=== PATIENT | female | born 1965 | race Caucasian/White ===

== ENCOUNTER 2017-02-11 11:12 | Day surgery (SDC) | payer OTHER ==
[~2017-02-11] VITALS: Ht 160 cm; Wt 87.1 kg
[~2017-02-11 11:12] MED LIST: ALBU18HF; CHOL100062 PO; GLIP-95 PO; IBUP800T25 PO; LEVO137T7 PO; LISI10TA2 PO; LISINOPRIL; MULT1TAB59 PO; OMEPRAZOLE; PULMICORT
[2017-02-11 12:10] VITALS: Ht 160 cm; Wt 87.1 kg
[2017-02-11 12:25] VITALS: BP 122/70; PULSE 57; RESP 17
[2017-02-11] MEDS ORDERED: FENTAnyl 50 MCG/ML VIAL ONE (12:51)
[2017-02-11] MEDS ORDERED: LIDOCAINE 2% (SDV) 5 ML INJ ONE (12:51)
[2017-02-11] MEDS ORDERED: PROPOFOL 20 ML ONE (12:51)
[2017-02-11] MEDS ORDERED: ALBUTEROL HFA 8 GM INHALER ONE (12:51)
--- NOTE | 2017-02-11 14:19 | GILP ---
DATE OF PROCEDURE: NAME OF PROCEDURES: Esophagogastroduodenoscopy and biopsy. SURGEON: Melany Corley MD PREOPERATIVE DIAGNOSES: 1. Dysphagia. 2. Abdominal pain. POSTOPERATIVE DIAGNOSES: 1. Status post gastric sleeve surgery. 2. Nodules in the antrum as well as well as the proximal part of the stomach and biopsies were take n for histopathology. 3. Normal small bowel and biopsies were taken to rule out celiac disease. INDICATION FOR THE PROCEDURE: Ms. Nakia Ford is a 51-year-old female patient who had dysphagia. The patient also had a feeling of fullness after eating and she could not tolerate certain kinds of food. The patient was scheduled for endoscopic examination for further evaluation. The procedure and possible complications are well explained to the patient, she understood and conse nted to the procedure. DESCRIPTION OF PROCEDURE: Under the influence of anesthesia, the gastroscope was carefully introduc ed into the esophagus and under direct vision, it was advanced to the stomach and through the pyloru s into the duodenal bulb and descending duodenum. FINDINGS: ESOPHAGUS: The esophageal mucosa was normal. STOMACH: The patient was status post gastric sleeve surgery. The patient also had nodules on the g astric antrum as well as the proximal part of the stomach. Multiple biopsies were taken for histopa thology. The small bowel was normal. Small bowel biopsies were taken to rule out celiac disease. The patient tolerated the procedure very well and there was no complication from the procedure. At the end of the procedure, she was awake with stable vital signs and she was discharged home to the are of her family. IMPRESSION: 1. Status post gastric sleeve surgery. 2. Small bowel biopsies were taken to rule out celiac disease. 3. Gastric nodules on the antrum and proximal part of the stomach and biopsies were taken for histo pathology. PLAN: 1. Continue omeprazole. 2. Await histopathology reports. Dictated By: MELANY US/WILVER Conf#: [id number] DID#: [id number]
--- NOTE | 2017-02-11 21:08 | CONS ---
DATE OF ADMISSION: 02/11/2017 DATE OF CONSULTATION: TYPE OF CONSULTATION: Preoperative gastroenterology. Dear Dr. Ma, I thank you very much for this kind referral. HISTORY OF PRESENT ILLNESS: Ms. Nakia Ford is a 51-year-old female patient who has been referred to me for further evaluation of dysphagia. The patient also feels full after eating and she is not able to tolerate certain kind of food. The patient has history of gastritis and gastroesophageal r eflux disease. She is status post gastric sleeve surgery. There is no history of esophageal strict ure. There is no history of gallstones. She does not have any fever, chills, or jaundice. She magaña s not have any liver disease. The patient underwent colonoscopy 1 year ago, and she had a small col on polyp removed. No malignancy was detected. She is hypertensive. She has diabetes. There is no history of heart disease. She has history of bronchial asthma. There is no history of kidney dise ase. She has hypothyroidism. She is status post appendectomy and tummy tuck surgery. SOCIAL HISTORY: She is a nonsmoker. She does not abuse alcohol. FAMILY HISTORY: Negative for gastrointestinal tract neoplasm. ALLERGIES: SHE STATES SHE IS ALLERGIC TO VICODIN. MEDICATIONS: 1. She takes medicines for high blood pressure. 2. Diabetes. 3. Levothyroxine. 4. Omeprazole. 5. Zantac. 6. Morphine. PHYSICAL EXAMINATION: VITAL SIGNS: She is 5 feet 3 inches tall and weighs 180 pounds. HEART: Examination of the heart reveals normal first and second heart sounds. LUNGS: Clear. ABDOMEN: Soft without any distention. Liver and spleen are not palpable. There are no masses. Th ere is no focal tenderness. Normal bowel sounds are heard. CENTRAL NERVOUS SYSTEM: Does not reveal any focal neurological deficit. IMPRESSION: 1. Dysphagia with a feeling of fullness after eating. 2. The patient also states she cannot tolerate certain kind of food. 3. Gastroesophageal reflux disease. 4. The patient had screening colonoscopy 1 year ago, and no malignancy was identified. 5. Status post gastric sleeve surgery. 6. Hypertension. 7. Diabetes mellitus. 8. Bronchial asthma. 9. Hypothyroidism. 10. Status post appendectomy. 11. Status post tummy tuck surgery. 12. ALLERGY TO VICODIN. PLAN: 1. Endoscopic examination for further evaluation. At the time of upper endoscopy, small bowel biop sies will be taken to rule out celiac disease. 2. Because of the multiple medical problems and obesity, she needs monitored anesthesia care for th e procedure. The procedure and possible complications are well explained to the patient. She understands and con sents to the procedure. I thank you once again. With warmest personal regards, Dictated By: MELANY US/WILVER Conf#: [id number] DID#: [id number]
== END 2017-02-11 18:41 | disposition home or self-care (01) ==
LOC: GIL 11:12
PROVIDERS: ATTEND Internal Medicine Gastroenterology
DX: K29.50 Unspecified chronic gastritis without bleeding (principal); I10 Essential (primary) hypertension; E11.9 Type 2 diabetes mellitus without complications; J45.909 Unspecified asthma, uncomplicated; E03.9 Hypothyroidism, unspecified
CPT/HCPCS: 43239; 88305; 88312; J3010; Z7610

== ENCOUNTER 2019-04-22 15:54 | Emergency (ER) | payer OTHER ==
[~2019-04-22] VITALS: Ht 160 cm; Wt 77.6 kg
[~2019-04-22 15:54] MED LIST changes: -GLIP-95 PO; +IBUP-1544 PO; -IBUP800T25 PO; -LISI10TA2 PO; -LISINOPRIL; -PULMICORT
[2019-04-22 16:00] VITALS: Ht 160 cm; Wt 77.6 kg
[2019-04-22] MEDS ORDERED: ASPIRIN 325 MG TAB PO STA (16:51)
--- NOTE | 2019-04-22 17:16 | ERD ---
ER Documentation Chief Complaint Chief Complaint ON AND OFF CHEST PAIN X3 DAYS, NO SOB HPI This is a 54-year-old female with a past medical history of [id number] diabetes mellitus and hypothyroidism. The patient indicates for the past 3 days she has had intermittent chest pain. She states is a sharp shooting pain. It does radiate to her left arm and neck. She had no associated symptoms of diaphoresis or shortness of breath but states she is felt nauseous with no emesis. She indicates several years ago she had similar symptoms and required admission to the hospital. She has not seen a barrel rib matting machine operator on a regular basis. She denies any swelling of her lower extremities and no recent hospitalizations or travel. She said no fevers no shaking no chills. She denies a productive or nonproductive cough. She did not take any medication for the pain prior to arrival and states the pain is 6 out of 10 in intensity. She does not smoke tobacco. Her past surgical history includes gastric sleeve bypass surgery, tummy tack and appendectomy. ROS All systems reviewed and are negative except as per history of present illness. Medications Home Meds Reported Medications [Omeprazole] No Conflict Check 10/18/15 Ibuprofen* (Ibuprofen*) 800 Mg Tablet, 800 MG PO Q8 NEEDED FOR PAIN 07/08/12 Cholecalciferol* (Vitamin D3*) 1,000 Unit Tablet, 1000 UNIT PO DAILY 05/09/11 Multivitamins* (Multivitamins*) 1 Tab Tablet, 1 TAB PO DAILY 05/09/11 Albuterol Sulfate* (Ventolin HFA*) 18 Gm Hfa.aer.ad 11/03/10 Levothyroxine Sodium (Levothroid) 137 Mcg Tablet, 137 MCG PO DAILY, 0 Refills 11/03/10 Allergies Allergies: Coded Allergies: Penicillins (Verified Allergy, Severe, 02/11/17) RASH, REDNESS, TONGUE SWELLS hydrocodone (Verified Allergy, Severe, 02/11/17) RASH,REDNESS,TONGUE SWELLS PMhx/Soc History of Surgery: Yes (S/P APPENDECTOMY, TUMMY TUCK, GASTRIC SLEEVE, C/S X1) Anesthesia Reaction: No Hx Neurological Disorder: No Hx Respiratory Disorders: Yes (ASTHMA) Hx Cardiac Disorders: No Hx Psychiatric Problems: No Hx Miscellaneous Medical Probl: Yes (HTN) Hx Alcohol Use: No Hx Substance Use: No Hx Tobacco Use: No Physical Exam Vitals Vital Signs Date Temp Pulse Resp B/P (MAP) Pulse Ox O2 O2 Flow FiO2 Time Delivery Rate 04/22/19 Nasal 2 17:34 Cannula 04/22/19 99.0 71 18 137/82 100 16:00 (100) Physical Exam Constitutional:Well-developed. Well-nourished. HEENT:Normocephalic. Atraumatic.Pupils were equal round reactive to light. Moist mucous membranes.No tonsillar exudates. Neck: No nuchal rigidity. No lymphadenopathy. No posterior cervical spine tenderness or step-offs. Respiratory: Not using accessory muscles of respiration.Lungs were clear to auscultation bilaterally. No rhonchi. No rales. No wheezing. Cardiovascular: Regular rate regular rhythm.No murmurs. No rubs were appreciated.S1, S2 normal. Distal pulses are palpable 2+ bilaterally. GI: Abdomen was soft. Nontender. Non Distended. No pulsatile abdominal masses or bruits. No rebound. No guarding. Bowel sounds were present and normal. Muscle skeletal: Full range of motion of both the upper and lower extremities bilaterally.Normal muscle tone.No assymetrical calf tenderness or swelling. Skin: No petechia, no purpura. No lesions on the palms or the soles of the feet. No maculopapular rash. NEURO: Patient was alert, awake, orientated x3.No facial droop. Gait observed and normal with no ataxia.Speech had regular rate and rhythm. No focal neurological deficits. Result Diagram: 04/22/19 1720 04/22/19 1720 Results 24 hrs Laboratory Tests Test 04/22/19 17:20 White Blood Count 5.4 10^3/ul Red Blood Count 4.79 10^6/ul Hemoglobin 12.0 g/dl Hematocrit 39.4 % Mean Corpuscular Volume 82.3 fl Mean Corpuscular Hemoglobin 25.1 pg Mean Corpuscular Hemoglobin Concent 30.5 g/dl Red Cell Distribution Width 14.2 % Platelet Count 178 10^3/UL Mean Platelet Volume 12.3 fl Immature Granulocytes % 0.400 % Neutrophils % 58.1 % Lymphocytes % 29.8 % Monocytes % 10.4 % Eosinophils % 0.9 % Basophils % 0.4 % Nucleated Red Blood Cells % 0.0 /100WBC Immature Granulocytes # 0.020 10^3/ul Neutrophils # 3.1 10^3/ul Lymphocytes # 1.6 10^3/ul Monocytes # 0.6 10^3/ul Eosinophils # 0.1 10^3/ul Basophils # 0.0 10^3/ul Nucleated Red Blood Cells # 0.0 10^3/ul Prothrombin Time 14.4 Sec Prothrombin Time Ratio 1.1 INR International Normalized Ratio 1.11 Activated Partial Thromboplast Time 28.7 Sec Sodium Level 143 mmol/L Potassium Level 3.8 mmol/L Chloride Level 108 mmol/L Carbon Dioxide Level 26 mmol/L Anion Gap 9 Blood Urea Nitrogen 22 mg/dl Creatinine 0.76 mg/dl Est Glomerular Filtrat Rate mL/min > 60 mL/min Glucose Level 84 mg/dl Calcium Level 9.1 mg/dl Total Bilirubin 0.3 mg/dl Direct Bilirubin 0.00 mg/dl Indirect Bilirubin 0.3 mg/dl Aspartate Amino Transf (AST/SGOT) 27 IU/L Alanine Aminotransferase (ALT/SGPT) 29 IU/L Alkaline Phosphatase 73 IU/L Creatine Kinase 40 IU/L Creatine Kinase Index 1.0 Creatinine Kinase MB (Mass) 0.41 ng/ml Troponin I < 0.012 ng/ml B-Type Natriuretic Peptide 33 PG/ML Total Protein 7.9 g/dl Albumin 4.3 g/dl Globulin 3.60 g/dl Albumin/Globulin Ratio 1.19 Current Medications Medications Dose Sig/Shannon Start Time Status Last (Trade) Ordered Route PRN Stop Time Admin Dose Reason Admin Aspirin 325 mg ONCE STAT 04/22/19 DC 04/22/19 (Aspirin) PO 16:51 17:32 04/22/19 16:52 1 tab Q5M UP TO 3 04/22/19 04/22/19 Nitroglycerin DOSES PRN 17:30 17:32 SL .CHEST (Nitroglyceri PAIN n (Sl Tab) 0.4 Mg) Procedures/MDM The patient presented to the emergency department with chest pain. My clinical evaluation and workup was to distinguish minor causes of chest pain from acute life threatening conditions such as myocardial infarction, pulmonary embolism, aortic dissection, esophageal rupture, cardiac tamponade. The patient was placed on a front desk monitor and continuous pulse oximetry. IV access established by nursing staff. The patient was given aspirin and nitroglycerin. She stated her chest pain had improved but did not completely resolve 12 Lead EKG tracing ordered and reviewed by myself showed: Normal sinus rhythm of 74 bpm and no arrhythmia. RI interval normal. QRS duration normal. No ST segment elevation No ST segment depression. No changes consistent with acute ischemia. The patient had no evidence of ischemia and troponin was within normal limits. Repeat troponin was also within normal limits. My clinical suspicion was low for myocardial ischemia and the patient's chest pain improved after receiving IV Toradol. The patient states she felt comfortable being discharged home as I felt she could follow-up on an outpatient basis with a barrel rib matting machine operator. The patient was discharged home in fair condition. They were instructed to return to the emergency department at any time if there was any worsening of their condition. The patient stated they would follow up with their PCP in the next 24-48 hours to initiate a suitable medication regimen under the care of their PCP as well as to allow their PCP to monitor any drug reactions. The patient was discharged home with prescriptions after they gave informed consent to the new medication. They were also fully informed by myself on the adverse effects and adverse drug interactions in order to provide adequate safeguards to prevent possible adverse reactions to medications. Departure Diagnosis: Primary Impression: Chest pain Chest pain type: unspecified Qualified Codes: R07.9 - Chest pain, unspecified Condition: Fair JULIANNA DANIEL MD Apr 22, 2019 17:16
[2019-04-22] MEDS ORDERED: NITROGLYCERIN (SL) 0.4 MG TAB SL PRN (17:30)
[2019-04-22] MEDS ORDERED: KETOROLAC 30 MG INJ IV STA (19:16)
[2019-04-22 21:15] VITALS: BP 112/85; PULSE 65; RESP 16
== END 2019-04-22 21:30 | disposition home or self-care (01) ==
LOC: E/R 15:54
DX: R07.9 Chest pain, unspecified (principal); I10 Essential (primary) hypertension; E11.9 Type 2 diabetes mellitus without complications; J45.909 Unspecified asthma, uncomplicated
CPT/HCPCS: 36415; 71045; 80053; 82550; 82553; 83880; 84484; 85025; 85610; 85730; 96374; J1885; Z7502; Z7610; 93005